=== PATIENT | female | born 1970 | race Caucasian/White ===

== ENCOUNTER 2021-03-31 08:50 | Emergency (ER) | payer MEDICAID ==
[~2021-03-31] VITALS: Ht 170.2 cm; Wt 206.0 kg
[~2021-03-31 08:50] MED LIST: IBUP-1984 PO
[2021-03-31 08:51] VITALS: BP 204/61
[2021-03-31] MEDS ORDERED: HYDR28CR14 TOP (09:44)
[2021-03-31] MEDS ORDERED: CEPH250T PO (09:44)
== END 2021-03-31 09:56 | disposition home or self-care (01) ==
LOC: ER 08:50
DX: L25.9 Unspecified contact dermatitis, unspecified cause (principal); L03.90 Cellulitis, unspecified; G89.29 Other chronic pain; Z88.2 Allergy status to sulfonamides; Z79.2 Long term (current) use of antibiotics; Z79.899 Other long term (current) drug therapy
CPT/HCPCS: 99283